=== PATIENT | male | born 1980 | race Caucasian/White ===

== ENCOUNTER 2018-11-19 20:41 | Emergency (ER) | payer MEDICAID ==
[2018-11-20] MEDS: ONDANSETRON (ODT) 4 MG TAB ODT (03:07)
[2018-11-20] MEDS: HYDROmorphONE 2 MG/ML SYG IM (03:07)
== END 2018-11-20 03:39 | disposition home or self-care (01) ==
LOC: FTE 20:41
DX: M54.5 Low back pain (principal)
CPT/HCPCS: 96372; 99284-25